=== PATIENT | female | born 1995 | race Caucasian/White ===

== ENCOUNTER 2022-01-09 16:13 | Emergency (ER) | payer OTHER ==
[~2022-01-09] VITALS: Ht 157.5 cm; Wt 56.4 kg
[2022-01-09 16:28] VITALS: BP 110/73; PULSE 90; TEMP 98.3
== END 2022-01-09 17:42 | disposition home or self-care (01) ==
LOC: COL.ER 16:13 → EDSEX 16:16 → COL.ER 16:16
DX: T63.301A Toxic effect of unspecified spider venom, accidental (unintentional), initial encounter (principal)
CPT/HCPCS: J1100